=== PATIENT | male | born 1965 | race Two or more races ===

== ENCOUNTER 2019-04-02 11:17 | Emergency (ER) | payer MEDICAID ==
[~2019-04-02] VITALS: Ht 175.3 cm; Wt 82.7 kg
== END 2019-04-02 12:22 | disposition home or self-care (01) ==
LOC: ED 12:10
DX: I45.81 Long QT syndrome (principal); F31.9 Bipolar disorder, unspecified; E11.9 Type 2 diabetes mellitus without complications
CPT/HCPCS: 93005; 99283